=== PATIENT | male | born 1965 | race Hispanic/Latino ===

== ENCOUNTER → 2018-03-12 | Day surgery (SDC) | payer OTHER ==
[2018-03-11 12:00] LABS: BASOPHILS % 0.5 % (0.0-1.0); EOSINOPHILS # (AUTO) 0.1 (0.0-0.4); EOSINOPHILS % 1.8 % (0.0-6.0); HEMATOCRIT 41.9 % (38.2-49.6); HEMOGLOBIN 14.6 g/dL (14.0-18.0); LYMPHOCYTES # (AUTO) 1.7 (1.0-3.2); LYMPHOCYTES % 30.3 % (18.0-39.1); MEAN CORPUSCULAR HEMOGLOBIN 32.1 pg (28-32); MEAN CORPUSCULAR HGB CONC 34.8 g/dL (31-35); MEAN CORPUSCULAR VOLUME 92.1 fL (81-99); MONOCYTES # (AUTO) 0.5 (0.2-0.8); MONOCYTES % 9.4 % (4.4-11.3); NEUTROPHILS # (AUTO) 3.3 (2.1-6.9); NEUTROPHILS % 57.6 % (38.7-80.0); PLATELET COUNT 184 x10e3/uL (140-360); RED BLOOD COUNT 4.55 x10e6/uL (4.3-5.7); RED CELL DISTRIBUTION WIDTH 13.3 % (11.7-14.4)
[~2018-03-12] MED LIST: ASPIRIN81 MG PO; CIALIS20 MG PO; DESCOVY PO; FENTANYL CITRATE/PF 100MCG/2 ML INJ ONE; HYOSCYAMINE SULFATE 0.5 MG/ML AMP ONE; METOPROLOL TART25 MG PO; MIDAZOLAM HCL 2 MG/2 ML VIAL ONE; MONTELUKAST SOD10 MG PO; MULTIVITAMINS1 EAC7 PO; PROPOFOL IV EMULSION 10 MG/ML 50 ML VIAL ONE; TAMSULOSIN HCL0.4 MG PO; TERBINAFINE HC250 MG PO; TIVICAY PO; VASOTEC10 MG PO; VITAMIN E400 UNI1 PO; ZOLPIDEM TARTRA10 MG PO; [UNRECOGNIZED DRUG - OTHER] PO; [UNRECOGNIZED DRUG - OTHER] PO
== END | disposition home or self-care (01) ==
LOC: OR 07:56 → EDBD 10:30
PROVIDERS: ATTEND Internal Medicine Gastroenterology
DX: Z12.11 Encounter for screening for malignant neoplasm of colon (principal); K52.9 Noninfective gastroenteritis and colitis, unspecified; K29.70 Gastritis, unspecified, without bleeding; K22.8 Other specified diseases of esophagus; K44.9 Diaphragmatic hernia without obstruction or gangrene; K31.89 Other diseases of stomach and duodenum; K57.30 Diverticulosis of large intestine without perforation or abscess without bleeding; K64.8 Other hemorrhoids; B20 Human immunodeficiency virus [HIV] disease; C46.9 Kaposi's sarcoma, unspecified; D72.820 Lymphocytosis (symptomatic); I25.10 Atherosclerotic heart disease of native coronary artery without angina pectoris; I11.0 Hypertensive heart disease with heart failure; I50.9 Heart failure, unspecified; I25.2 Old myocardial infarction; J44.9 Chronic obstructive pulmonary disease, unspecified; M19.90 Unspecified osteoarthritis, unspecified site; Z01.810 Encounter for preprocedural cardiovascular examination; Z01.812 Encounter for preprocedural laboratory examination; Z79.82 Long term (current) use of aspirin; Z68.32 Body mass index [BMI] 32.0-32.9, adult; Z95.810 Presence of automatic (implantable) cardiac defibrillator; Z80.0 Family history of malignant neoplasm of digestive organs
CPT/HCPCS: 36415; 43239; 45380; 85025; 93005; J1980; J2250; 45378